=== PATIENT | male | born 1995 | race Caucasian/White ===

== ENCOUNTER 2018-01-08 11:54 | Emergency (ER) | payer OTHER ==
[~2018-01-08] VITALS: Ht 188 cm; Wt 88.6 kg
[2018-01-08 12:07] VITALS: BP 143/65
== END 2018-01-08 13:00 | disposition home or self-care (01) ==
LOC: ER 11:55
DX: S39.012A Strain of muscle, fascia and tendon of lower back, initial encounter (principal); X58.XXXA Exposure to other specified factors, initial encounter; Y93.89 Activity, other specified; Y92.89 Other specified places as the place of occurrence of the external cause; Y99.8 Other external cause status
CPT/HCPCS: 99281

== ENCOUNTER 2018-01-18 10:15 | Emergency (ER) | payer OTHER ==
[~2018-01-18] VITALS: Ht 188 cm; Wt 91.0 kg
[2018-01-18 10:45] VITALS: BP 138/86
== END 2018-01-18 10:51 | disposition home or self-care (01) ==
LOC: ER 10:16
DX: M54.9 Dorsalgia, unspecified (principal); G89.29 Other chronic pain
CPT/HCPCS: 99281